=== PATIENT | female | born 1995 | race Caucasian/White ===

== ENCOUNTER 2018-07-12 12:47 | Emergency (ER) | payer SELFPAY ==
[2018-07-12] MEDS: LIDOCAINE 1% (MPF) 5 ML VIAL INJ (15:18)
[2018-07-12] MEDS: IBUPROFEN 800 MG TAB PO (15:50)
== END 2018-07-12 16:16 | disposition home or self-care (01) ==
LOC: FTE 16:16
DX: L02.416 Cutaneous abscess of left lower limb (principal)
CPT/HCPCS: 10060; 99284-25